=== PATIENT | female | born 1940 | race Caucasian/White ===

== ENCOUNTER 2017-11-21 15:11 | Emergency (ER) | payer OTHER ==
[~2017-11-21] VITALS: Ht 157.5 cm; Wt 86.4 kg
[~2017-11-21 15:11] MED LIST: ACET-2341 PO; ASPI-891 PO; CALC600T2 PO; GARL1250 PO; INSU100C3 SQ; INSU100C4 SQ; LOVA20TA3 PO; MULT1TAB70 PO; SULI200T4 PO; TRIPLE FLEX PO; UBID200C31 PO; VALS80TA2 PO
[2017-11-21 15:33] LABS: GLUCOSE,POINT OF CARE 269 MG/DL (70-110)
[2017-11-21] MEDS ORDERED: INSNOV SQ (15:40)
[2017-11-21] MEDS ORDERED: INSLAN SQ (15:40)
[2017-11-21] MEDS ORDERED: AMLO-511 PO (15:40)
[2017-11-21] MEDS ORDERED: VALS40TA4 PO (15:40)
[2017-11-21] MEDS ORDERED: PREG50 PO (15:40)
[2017-11-21] MEDS ORDERED: KETOROLAC TROMETHAMINE 10 MG TABLET PO ONE (19:00)
[2017-11-21 19:48] LABS: GLUCOSE,POINT OF CARE 237 MG/DL (70-110)
[2017-11-21 21:09] VITALS: BP 132/68
== END 2017-11-21 21:33 | disposition home or self-care (01) ==
LOC: EMS 15:12 → EDBD 15:12 → EMS 21:33
DX: S83.91XA Sprain of unspecified site of right knee, initial encounter (principal); E11.9 Type 2 diabetes mellitus without complications; I10 Essential (primary) hypertension; Z86.73 Personal history of transient ischemic attack (TIA), and cerebral infarction without residual deficits; Z79.4 Long term (current) use of insulin; Z79.899 Other long term (current) drug therapy; X50.1XXA Overexertion from prolonged static or awkward postures, initial encounter; Y93.89 Activity, other specified; Y92.89 Other specified places as the place of occurrence of the external cause; Y99.8 Other external cause status
CPT/HCPCS: 29530; 99284